=== PATIENT | female | born 2000 | race Caucasian/White ===

== ENCOUNTER 2020-04-10 13:36 | Emergency (ER) | payer OTHER, MEDICAID ==
[~2020-04-10] VITALS: Ht 167.6 cm; Wt 77.1 kg
[~2020-04-10 13:36] MED LIST: BACTRIM DS TAB1 EACH PO; CEPHALEXIN 500500 M3 PO; CIPROFLOXIN HC2.5 M1 OPHTHALMIC; ELIMITE60 GM TOP; NOHOMEMEDICATIONS
[2020-04-10] MEDS ORDERED: TRIAMCINOLONE A80 G2 TOP (16:06)
[2020-04-10] MEDS ORDERED: PREDNISONE 10 M10 MG PO (16:06)
[2020-04-10 16:18] VITALS: BP 138/77
== END 2020-04-10 16:18 | disposition home or self-care (01) ==
LOC: M.ERS 13:36
DX: L53.9 Erythematous condition, unspecified (principal); J45.909 Unspecified asthma, uncomplicated